=== PATIENT | male | born 1950 | race Caucasian/White ===

== ENCOUNTER 2018-02-23 08:20 | Emergency (ER) | payer OTHER, MEDICARE ==
[~2018-02-23] VITALS: Ht 182.9 cm; Wt 105.0 kg
[~2018-02-23 08:20] MED LIST: ASPI325T PO; GLYB5TAB3 PO; LISI-360 PO; METF-324 PO; NIAC500T18 PO; ZOLP10TA3 PO
[2018-02-23 08:22] VITALS: BP 139/70; PULSE 118; RESP 22; TEMP 97.8; O2SAT 98
[2018-02-23] MEDS ORDERED: LISI10TA3 PO (08:39)
[2018-02-23] MEDS ORDERED: NIAC500T4 PO (08:39)
[2018-02-23] MEDS ORDERED: ASPI-183 PO (08:39)
[2018-02-23] MEDS ORDERED: METF-382 PO (08:39)
[2018-02-23] MEDS ORDERED: SYMB80AE INH (08:41)
[2018-02-23] MEDS ORDERED: RESP: ALBUTEROL 2.5 MG/IPRATROPIUM 0.5 MG NEB (SCH) INH ONE (09:45)
[2018-02-23] MEDS ORDERED: methylPREDNISolone SOD SUCC 125 MG/2 ML VIAL IV PUSH ONE (09:45)
[2018-02-23] MEDS: RESP: ALBUTEROL 2.5 MG/3 ML NEB (SCH) INH (09:50)
[2018-02-23] MEDS: SODIUM CHLORIDE 0.9% FLUSH 10 ML FLUSH IVF PRN ×2 (10:27→12:20)
--- NOTE | 2018-02-23 10:56 | RADRPT ---
EXAM DATE/TIME: 02/23/2018 10:37 [place] COMPARISON: No previous studies available for comparison. INDICATIONS : Cough for 5 days. MEDICAL HISTORY : None. SURGICAL HISTORY : None. ENCOUNTER: Initial ACUITY: 4 - 6 days PAIN SCORE: 3/10 LOCATION: Bilateral chest FINDINGS: PA and lateral views of the chest demonstrate the lungs to be symmetrically aerated without evidence of mass, infiltrate or effusion. The cardiomediastinal contours are unremarkable. Osseous structure s are intact. CONCLUSION: Normal examination for a patient of this age. Adolfo Reyse MD on February 23, 2018 at 10:53 Board Certified Radiologist. This report was verified electronically.
--- NOTE | 2018-02-23 11:12 | PD ---
HPI Chief Complaint: Cold / Flu Symptoms Time Seen by Provider: 09:43 Travel History International Travel<30 days: No Contact w/Intl Traveler<30days: No Traveled to known affect area: No History of Present Illness HPI 67-year-old male with a history newly diagnosed COPD, presents today with complaints of cough and congestion and eye drainage. The patient denies any fevers, chills. He reports that he has had a cough over the last 5 days and was concerned it may have been related to his inhaler that was recently prescribed to him. There is no production in his cough. He does report it is loose. There are no other complaints at time of my examination. No chest pain or chest pressure. PFSH Past Medical History Cancer: No Cirrhosis: Yes COPD: Yes Diabetes: Yes Patient Takes Glucophage: Yes Genitourinary: Yes (PENILE IMPLANT DYSFUNCTION) Hypertension: Yes Implanted Vascular Access Dvce: Yes Musculoskeletal: No Neurologic: No Psychiatric: No Respiratory: Yes Tetanus Vaccination: > 5 Years Influenza Vaccination: No Past Surgical History Body Medical Devices: PENILE IMPLANT Genitourinary Surgery: Yes (PENILE IMPLANT) Other Surgery: Yes (RHINOPLASTY) Social History Alcohol Use: No Tobacco Use: No (1 PPD) Substance Use: No Allergies-Medications (Allergen,Severity, Reaction): Coded Allergies: No Known Allergies (Unverified Adverse Reaction, Unknown, 02/23/18) Reported Meds & Prescriptions Reported Meds & Active Scripts Active Medrol Dosepak (Methylprednisolone) 4 Mg Dspk 4 Mg PO DIRECTED Per Pharmacist direction Zaki Tussin AC Liquid (Codeine Phosphate/Guaifenesin) 10 Mg-100 Mg/5 Ml Liquid 5 Ml PO Q6 PRN Doxycycline Hyclate 100 Mg Cap 100 Mg PO BID Reported Symbicort Inh (Budesonide/Formoterol Fumarate) 80-4.5 Mcg/Act Aero 2 Puff INH Q12HR Niacinamide 500 Mg Tab 500 Mg PO DAILY Aspirin 325 Mg Tab 325 Mg PO DAILY Lisinopril 10 Mg Tab 10 Mg PO DAILY Metformin ER (Metformin HCl) 1,000 Mg Senthli 1,000 Mg PO BID With evening meal Review of Systems Except as stated in HPI: all other systems reviewed are Neg General / Constitutional: No: Fever, Chills HENT: No: Headaches, Neck Pain Cardiovascular: No: Chest Pain or Discomfort, Palpitations Respiratory: Positive: Cough, Shortness of Breath, Wheezing Gastrointestinal: No: Nausea, Vomiting Musculoskeletal: No: Weakness, Pain Neurologic: No: Weakness, Dizziness, Headache Physical Exam Narrative GENERAL: Well-developed well-nourished male in no acute respiratory distress SKIN: Focused skin assessment warm/dry. HEAD: Atraumatic. Normocephalic. EYES: No scleral icterus. No injection or drainage. ENT: No nasal bleeding or discharge. Mucous membranes pink and moist. NECK: Trachea midline. Supple. CARDIOVASCULAR: Regular rate and rhythm. No murmur appreciated. RESPIRATORY: Rhonchi in the upper airways. No rales appreciated. Good air movement at the bases. GASTROINTESTINAL: Abdomen soft, non-tender, nondistended. Hepatic and splenic margins not palpable. MUSCULOSKELETAL: No obvious deformities. No clubbing. No cyanosis. No edema. NEUROLOGICAL: Awake and alert. No obvious cranial nerve deficits. Motor grossly within normal limits. Normal speech. PSYCHIATRIC: Appropriate mood and affect; insight and judgment normal. Data Data Last Documented VS Vital Signs Date Time Temp Pulse Resp B/P (MAP) Pulse Ox O2 Delivery O2 Flow Rate FiO2 02/23/18 08:35 110 20 96 Room Air 02/23/18 08:22 97.8 139/70 (93) Orders Orders Iv Access Insert/Monitor (02/23/18 09:44) Ecg Monitoring (02/23/18 09:44) Oximetry (02/23/18 09:44) Oxygen Administration (02/23/18 09:44) Chest, Pa & Lat (02/23/18 09:44) Sodium Chloride 0.9% Flush (Ns Flush) (02/23/18 09:45) Methylprednisolone So Succ Inj (Solumedr (02/23/18 09:45) Albuterol-Ipratropium Neb (Duoneb Neb) (02/23/18 09:45) Albuterol Neb (Albuterol Neb) (02/23/18 09:45) Doxycycline (Vibramycin) (02/23/18 12:15) MDM Medical Decision Making Medical Screen Exam Complete: Yes Emergency Medical Condition: Yes Differential Diagnosis Bronchitis versus pneumonia versus COPD exacerbation Narrative Course 67-year-old male history of newly diagnosed COPD, presents today with complaints of cough and congestion. Patient has bronchitis. He has been given 3 nebulizer treatments. He is also given 125 mg of Solu-Medrol. He has been given doxycycline 100 mg p.o. 1 dose. He will be discharged with a prescription for doxycycline 10 days. Also be given a Medrol Dosepak prescription and guaifenesin with codeine for the cough. He is i has been warned about the sedative effects of the cough syrup and told not to take while drinking alcohol driving vehicle. He is instructed to return if he develops any worsening symptoms. Diagnosis Primary Impression: Bronchitis Additional Impressions: History of COPD Diabetes mellitus Additional Instructions: Return if feeling worse. Your blood sugars may be elevated while taking the steroids. Please be careful not to overly aggressively treat with the short acting insulin. Med/Other Pt SpecificInfo: Prescription(s) given Scripts Methylprednisolone Dosepak (Medrol Dosepak) 4 Mg Dspk 4 MG PO DIRECTED, #1 DSPK 0 Refills Per Pharmacist direction Prov: Carter Bhat MD 02/23/18 Codeine Phosphate/Guaifenesin (G Tussin AC Liquid) 10 Mg-100 Mg/5 Ml Liquid 5 ML PO q6 Y for cough, #100 Prov: Carter Bhat MD 02/23/18 Doxycycline Hyclate (Doxycycline Hyclate) 100 Mg Cap 100 MG PO BID for Infection, #20 CAP 0 Refills Prov: Carter Bhat MD 02/23/18 Disposition: 01 DISCHARGE HOME Condition: Stable Carter Bhat MD February 23, 2018 11:12
[2018-02-23] MEDS ORDERED: DOXYCYCLINE HYCLATE 100 MG CAP PO ONE (12:15)
[2018-02-23] MEDS ORDERED: DOXY100C PO (12:29)
[2018-02-23] MEDS ORDERED: MEDR4PAK PO (12:29)
[2018-02-23] MEDS ORDERED: CODE118L PO (12:29)
== END 2018-02-23 12:55 | disposition home or self-care (01) ==
LOC: NEPE 08:20
DX: J40 Bronchitis, not specified as acute or chronic (principal); J44.9 Chronic obstructive pulmonary disease, unspecified; E11.9 Type 2 diabetes mellitus without complications; I10 Essential (primary) hypertension; K74.60 Unspecified cirrhosis of liver; F17.210 Nicotine dependence, cigarettes, uncomplicated; Z79.84 Long term (current) use of oral hypoglycemic drugs; Z79.899 Other long term (current) drug therapy
CPT/HCPCS: 71046; 94640; 94664; 96374; 99284; J2930; J7613